=== PATIENT | female | born 1995 | race Two or more races ===

== ENCOUNTER 2022-08-10 11:52 | Outpatient (CLI) | payer MEDICAID, SELFPAY ==
--- NOTE | 2022-08-10 12:15 | CRLHL7_ITS ---
For Patients: As a result of the Cures Act, medical imaging exams and procedure reports are released immediately into your electronic medical record. You may view this report before your referring provider. If you have questions, please contact your health care provider. INDICATION: Dating and viability COMPARISON: none TECHNIQUE: Real time allen scale imaging of the fetus was performed. FINDINGS: Sonographic imaging demonstrates a single living intrauterine gestation. Fetus demonstrates a regular cardiac rate of 157 beats per minute. Fetus has a variable position. The placenta lies anterior. Circumvallate placenta noted inferiorly. Amniotic fluid volume appears subjectively normal. The composite ultrasound gestational age is calculated at 15 weeks 0 days with an estimated sonographic due date of 02/01/2023. The estimated weight is 111 grams which lies at the 89th %. The following biometric measurements were obtained: Biparietal diameter: 2.9 cm/15 weeks 2 days 89th% Head circumference: 10.8 cm/15 weeks 1 day 84th% Abdominal circumference: 8.9 cm/15 weeks 1 day 86th% Femur length: 1.6 cm/14 weeks 5 days 70th% The HC/AC ratio measures: 1.22 range (1.05-1.39) IMPRESSION: Single living intrauterine with sonographic gestational age of 15 weeks 0 days and sonographic due date of 02/01/2023. Anterior placenta with circumvallate morphology inferiorly. Too early for anatomic survey. Dictated by Laz Tom MD @ 08/10/2022 1:00:29 PM (Electronically Signed)
== END 2022-08-10 11:53 | disposition home or self-care (01) ==
LOC: US 11:56
PROVIDERS: Visit Provider Physician Assistant
DX: Z34.92 Encounter for supervision of normal pregnancy, unspecified, second trimester (principal); Z3A.15 15 weeks gestation of pregnancy
CPT/HCPCS: 76801; 76815

== ENCOUNTER 2022-08-10 13:19 | Outpatient (CLI) | payer MEDICAID, SELFPAY ==
[2022-08-10 19:41] LABS: Albumin* 4.1 g/dL (3.3-5.0)
[2022-08-10 19:44] LABS: Alkaline Phosphatase* 49 U/L (40-150); Aspartate Amino Transferase* 22 U/L (12-35); Bilirubin Direct* 0.2 mg/dL (0.0-0.5); Bilirubin Total* 0.4 mg/dL (0.1-1.5); Total Protein* 7.4 g/dL (6.0-8.3)
[2022-08-10 19:45] LABS: Alanine Aminotransferase* 13 U/L (4-35)
[2022-08-10 20:18] LABS: Hepatitis B Surface Antigen* Negative (Negative)
[2022-08-10 20:29] LABS: HIV 1/2/P24 Combo Screen* Negative (Negative)
[2022-08-10 20:35] LABS: Hepatitis C Virus Antibody* Negative (Negative)
[2022-08-10 21:33] LABS: Chlamydia DNA Amplified* NOT DETECTED (No Detected); GC DNA Amplified* NOT DETECTED (No Detected)
[2022-08-13 02:09] LABS: Rapid Plasma Reagin (RPR) Non Reactive (Non Reactive)
[2022-08-13 05:33] LABS: Rubella Antibody IgG 37.6 IU/mL
== END 2022-08-10 13:20 | disposition home or self-care (01) ==
PROVIDERS: Visit Provider Physician Assistant
DX: Z34.92 Encounter for supervision of normal pregnancy, unspecified, second trimester (principal); N89.8 Other specified noninflammatory disorders of vagina; R10.11 Right upper quadrant pain; Z3A.14 14 weeks gestation of pregnancy
CPT/HCPCS: 80076; 86592; 86703; 86762; 86787; 86803; 86850; 86900; 86901; 87086; 87186; 87340; 87491; 87591

== ENCOUNTER 2022-09-07 14:57 | Outpatient (CLI) | payer MEDICAID, SELFPAY ==
--- NOTE | 2022-09-07 15:00 | CRLHL7_ITS ---
For Patients: As a result of the Century Cures Act, medical imaging exams and procedure reports are released immediately into your electronic medical record. You may view this report before your referring provider. If you have questions, please contact your health care provider. INDICATION: Evaluate anatomy. COMPARISON: 08.10.22 TECHNIQUE: Real time allen scale imaging of the fetus was performed as well as color Doppler analysis of the umbilical vessels. FINDINGS: Sonographic imaging demonstrates a single living intrauterine gestation. Fetus demonstrates a regular cardiac rate of 163 beats per minute. Fetus has a transverse position, head maternal right. The placenta lies anterior/posterior and the posterior edge of the placenta lies 3 millimeters from the internal os with transvaginal imaging. Amniotic fluid volume appears normal. Single deepest vertical pocket: 5.4 cm. The cervix is closed and measures 5.9 cm in length. The composite ultrasound gestational age is calculated at 19 weeks 0 days with an estimated sonographic due date of 02/01/2023. The estimated weight is 253 grams which lies at the 29th %. The following biometric measurements were obtained: Biparietal diameter: 4.2 cm/18 weeks 5 days 35th% Head circumference: 15.7 cm/18 weeks 4 days 24th% Abdominal circumference: 13.7 cm/19 weeks 1 day 51st% Femur length: 2.7 cm/18 weeks 2 days 18th% The HC/AC ratio measures: 1.15 range (1.09-1.26) On anatomic survey, there is a normal appearance of the cerebral ventricles, cavum septi pellucidi, cisterna magna and cerebellum. The nose and lips appear normal. Incomplete visualization of the profile due to position. The cervical, thoracic and lumbar spine are well visualized and appear normal. Echogenic focus within the left ventricle. The left and right ventricular outflow tracts appear normal. The diaphragm and stomach appear normal. The kidneys and bladder also appear normal. There is a normal three-vessel cord and cord insertion site. The four extremities appear normal. IMPRESSION: Concordance of clinical and sonographic dating. Estimated weight 29th percentile. Abdominal circumference 51st percentile. Left ventricular echogenic focus measuring 1.4 millimeters. A level 2 ultrasound is recommended. Incomplete visualization of the profile due to position. The placenta appears to wrap around the anterior and posterior aspects. Circumvallate placenta is not as well appreciated when compared to the prior study. Nevertheless, there is low-lying placenta with the posterior aspect of the placenta extending to within 3 millimeters of the internal cervical os with transvaginal imaging. Dictated by Laz Tom MD @ 09/08/2022 12:37:50 PM (Electronically Signed)
== END 2022-09-07 14:58 | disposition home or self-care (01) ==
LOC: US 14:58
PROVIDERS: Visit Provider Physician Assistant
DX: Z34.92 Encounter for supervision of normal pregnancy, unspecified, second trimester (principal); Z3A.18 18 weeks gestation of pregnancy
CPT/HCPCS: 76805; 76817; 84443; 87086; 87186

== ENCOUNTER 2022-09-07 16:30 | Outpatient (CLI) | payer MEDICAID, SELFPAY | END 2022-09-07 16:31 | disposition home or self-care (01) | PROVIDERS: Visit Provider Physician Assistant | DX: O23.42 Unspecified infection of urinary tract in pregnancy, second trimester (principal); Z3A.19 19 weeks gestation of pregnancy | CPT/HCPCS: 84443; 87086; 87186 ==

== ENCOUNTER 2022-10-15 13:20 | Outpatient (CLI) | payer BC, SELFPAY | END 2022-10-15 13:21 | disposition home or self-care (01) | LOC: NFLDREF 10-17 05:39 | PROVIDERS: PCP Physician Assistant; Visit Provider Physician Assistant | DX: O23.42 Unspecified infection of urinary tract in pregnancy, second trimester (principal); O26.899 Other specified pregnancy related conditions, unspecified trimester; M54.50 Low back pain, unspecified; Z3A.19 19 weeks gestation of pregnancy | CPT/HCPCS: 87086 ==

== ENCOUNTER 2022-11-11 08:00 | Outpatient (RCR) | payer BC, SELFPAY ==
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
== END 2023-01-18 08:23 | disposition home or self-care (01) ==
PROVIDERS: PCP Physician Assistant; Visit Provider Physician Assistant
DX: O26.899 Other specified pregnancy related conditions, unspecified trimester (principal); M54.50 Low back pain, unspecified; R26.9 Unspecified abnormalities of gait and mobility; R53.1 Weakness; Z51.89 Encounter for other specified aftercare
CPT/HCPCS: 97110; 97140; 97161

== ENCOUNTER 2023-01-13 10:30 | Outpatient (CLI) | payer BC, SELFPAY | END 2023-01-13 10:31 | disposition home or self-care (01) | LOC: NFLDREF 01-14 15:39 | PROVIDERS: PCP Physician Assistant; Referring Provider Physician Assistant; Visit Provider Obstetrics & Gynecology | DX: Z34.83 Encounter for supervision of other normal pregnancy, third trimester (principal); Z36.85 Encounter for antenatal screening for Streptococcus B; Z3A.37 37 weeks gestation of pregnancy | CPT/HCPCS: 87081; 87653 ==

== ENCOUNTER 2023-01-16 21:18 | Inpatient (IN) | payer BC, SELFPAY ==
[2023-01-16] VITALS (10 sets, daily range): BP systolic 108–130; BP diastolic 59–78; PULSE 96–117; RESP 18; TEMP 36.8; BMI 24.5
[2023-01-16] MEDS: LACTATED RINGERS 1000 ML 1,000 ML 125 ML IV (21:34)
[2023-01-16] MEDS: AMPICILLIN 2 GM in 0.9 % SODIUM CHLORIDE Mini-bag 100 ML IVPB (21:35)
[2023-01-16] MEDS: OXYTOCIN 30 unit/500 ML in NS 30 UNIT/500 ML BAG 300 UNIT IVPB (22:51)
[2023-01-16] MEDS: LIDOCAINE 1 % PF 30 ML INJECTION (22:54)
[2023-01-16] MEDS: ACETAMINOPHEN 500 MG TABLET 1000 MG PO (23:31)
[2023-01-17] VITALS (8 sets, daily range): BP systolic 97–132; BP diastolic 64–79; PULSE 74–102; RESP 16–18; TEMP 36.6–36.9; O2SAT 97–99
[2023-01-17] MEDS: IBUPROFEN 600 MG TABLET PO ×2 (00:27→12:37)
--- NOTE | 2023-01-17 00:44 | W.PM.OBVAGDE ---
OB Procedure Vag Delivery Mother Details Mother Details: The patient is a 27 year-old, 3, Para 2, admitted on 01/16/23 at 37 6/7 weeks gestation in active labor. Cervix 7-8 cm dilated at the time of admission. GBS positive, one dose of antibiotics administered prior to delivery, 4-hour window not obtained. : 3 Para: 2 Weeks Gestation: 37.6 Admission Date: 01/16/23 Additional Details Amniotic Membrane Status: intact Amniotic Membrane Rupture Date: 01/16/23 Amniotic Membrane Rupture Time: 22:27 Amniotic Membrane Fluid Description: Clear Analgesia/Anesthesia Type: None Waterbirth: No Pitcoin: No Intrapartal Events: None Delivery augmentation: rupture of membranes Labor Onset: 20:00 Complete: 22:42 Pushin:42 Heart: heart tones during second stage were category 2. Delivery Details Delivery Date: 01/16/23 Delivery Time: 22:43 Route of delivery: Gender: Female Viability: Alive; Heart Rate Present Position at Delivery: OA Delivery Details: Delivered over intact perineum via spontaneous vaginal delivery. was placed on maternal abdomen.? Cord was clamped and cut after a 30-60 second delay. Nose and mouth were bulb suctioned.? weight 3390 g. 1 Minute Interval Total Score: 6 5 Minute Interval Total Score: 8 Additional Details Shoulder Dystocia: No Placenta Delivery Time: 22:48 Placental Delivery Description: Spontaneous Delivery repair: Chromic Procedure Done: Global Blood Loss: 625 Laceration: Perineal - 2nd Degree (left) Blood Loss Measurement Type: QBL Bakri Used: No Sponge/Need Count Correct: Yes Cord Vessel Description: 3 Vessels, Nuchal Cord (x1), Loose and Reduced Event Summary Status: Mother and infant were stable after delivery. required PPV for 1 minute, then CPAP for ~15 minutes. See Peds note. Disposition: floor
--- NOTE | 2023-01-17 00:54 | P.LDBA_ITS ---
Subjective History of Present Illness Narrative: Patient is being admitted to Labor and Delivery for active labor. She is a 27 year old at 37 6/7 weeks gestation. Her full history and physical was dictated by Dr. Sawyer on 01/13/23. Please see this for details. . Children: Onel Correa III. Baby: Girl! Cassie Father of Baby: Onel Madsen 1. Asthma * Mild intermittent, albuterol use approximately every 2 weeks 2. Right upper quadrant pain reported at 1st OB, present for 2 weeks. Intermittent. * LFTs: all normal * RUQ US: Patient had to reschedule. 09/07/22: Reported episodes of pain had decreased in frequency 3. UTI, E coli. Resistant to amoxicillin and Bactrim. Treated with macrobid * UC 09/07/22: e coli. Resistant to amoxillin and Bactrim. Treated with Keflex * UC next visit 10/15/22: <10,000 gram-positive marcia 4. Anterior placenta with circumvallate morphology inferiorly noted on viability ultrasound at 15 weeks 5. FAS US: Echogenic foci left ventricle, suboptimal views of profile. Placenta wrapped anterior to posterior. Post portion to internal os: 0.3cm. Ant portion to internal os: 2.5.cm = Low-lying placenta. * Maternity T21: No increased risk for aneuploidy * Level 2 ultrasound: Echogenic foci noted, otherwise normal anatomy. In the setting of low risk cell free DNA, considered incidental finding. Low-lying placenta resolved 6. Syncopal episodes * EKG: sinus rhythm with sinus arrhythmia * TSH normal * Cardiology referral : appt. 10/15/22 (note not available yet, per patient concern for POTS) 7. LBP, PT referral 10/15/22 8. Desires Nexplanon placed in the hospital prior to discharge (agnieszka conroy does not want her on control, discussed IUD vs nexplanon, discussed bruising and ability to see and palpate kenya) 9. Reports Pap last (2021), records requested. Delivery note requested: As of 12/31/22 neither have been scanned * Pap w/ HPV at her 6 wk pp visit. Flu shot: Completed Covid: due for booster Tdap: 11/26/22 OB - Problem Based A/P Additional Plan (1) Spontaneous onset of labor: Status: Acute Plan GBS positive, begin antibiotic prophylaxis. 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
[2023-01-17 06:43] LABS: Hemoglobin* 10.3 gm/dL (12.0-16.0)
[2023-01-17] MEDS: DOCUSATE SODIUM 100 MG CAPSULE PO (08:09)
[2023-01-17] MEDS: ACETAMINOPHEN 500 MG TABLET 1000 MG PO ×2 (08:09→19:21)
--- NOTE | 2023-01-17 08:27 | PM.OBPNVD1 ---
OB - PN:Subj Subjective Date Seen: 01/17/23 Patient comments OB post-: no complaints, pain well controlled, tolerating diet and flatus present Garfield status: and doing well Garfield feeding status: exclusively Narrative: The patient feels well.? The pain is well controlled with current medications.? She has no new complaints.? Urinary output is adequate and she is voiding without difficulty.? Has a good appetite, is tolerating a general diet, is passing flatus, and has not had a bowel movement.? Has small amount of rubra lochia.? She is ambulating well. She wanted to discharge today but we discussed that baby was not fully treated for GBS so the recommendation is for baby to stay for 36-48 hours. Did let her know that she could discharge but baby would have to stay and she declined. She is worried about her other children but stated that they are with her partner. asked if she was comfortable with this and she said that she is. She would like a Nexplanon inserted before discharge. Discussed other options including the depo shot and IUD. She states that he wants more kids so will not bring her for an appointment for control but that if it is already there he won't say anything. Discussed that it can be inserted today sometime or tomorrow morning. She doesn't want to do it if he is here so she will inform the nurses if there is a period of time when she knows he will not be here. OB - PN: Obj Exam Physical Exam: Vital signs: Temp Pulse Resp BP O2 Del Method 98.0 F 90 18 109/66 Room Air 01/17/23 04:25 01/17/23 04:25 01/17/23 04:25 01/17/23 04:25 01/17/23 04:25 Narrative: GENERAL APPEARANCE:? normal affect, alert, no distress, slight flat affect MOOD:? appropriate? CHEST:? clear to auscultation and percussion? HEART:? regular rate and rhythm? ABDOMEN:? soft, non-tender the uterine fundus is U/2 and is appropriate for the stage of recovery.? PERINEUM:? mild edema of the perineum, there is a 2nd degreee that is healing well.? EXTREMITIES:? normal and no edema? OB - PN: Obj Data Labs Labs: Laboratory Results - last 24 hr 01/17/23 06:29 Hgb 10.3 L OB - PN: A/P Delivery Assessment and Plan (1) care following vaginal delivery: Status: Acute (2) Lactating mother: Status: Acute Plan day: 1 Plan: routine care Comments: Anticipate discharge tomorrow.?
[2023-01-18 00:15] VITALS: BP 105/64; PULSE 100; RESP 16; TEMP 37.1; O2SAT 99
[2023-01-18] MEDS: IBUPROFEN 600 MG TABLET PO (05:12)
--- NOTE | 2023-01-18 07:24 | P.DS_ITS ---
DS: Providers Provider Time Seen by Provider: : Date Seen: 01/18/23 Date of admission: 01/16/23 21:18 Primary care physician: Tierra Lou PA-C Admitting Clinician: Emperatriz Campo MD Attending Physician on discharge: Emperatriz Campo MD Date of Discharge: 01/18/23 DS: Diagnosis Discharge Diagnosis (1) care following vaginal delivery: Status: Acute (2) Lactating mother: Status: Acute (3) Second degree laceration of perineum, delivered, current hospitalization: Status: Acute Exam Narrative: Exam Narrative: VSS, afebrile GENERAL APPEARANCE: ?normal affect, alert, no distress MOOD: ?appropriate HEENT: normocephalic, neck supple, full ROM CHEST: ?Symmetrical chest wall movement. ?Normal respiratory effort. ?Clear to auscultation HEART: ?regular rate and rhythm ABDOMEN: ?soft, non-tender. Uterine fundus is firm, 3 below Umbilicus, Midline and is appropriate for the stage of recovery. ?Bowel sounds present. PERINEUM: ?moderate edema of the perineum, there is a 2nd degree laceration that is healing well. EXTREMITIES: ?normal and no edema Const: Vital Signs, click to edit/add: Vital Signs - 24 hr 01/17/23 07:50 01/17/23 12:41 01/17/23 17:00 Temperature 98.0 F 97.9 F Pulse Rate [Blood Pressure Cuff] 101 H 90 101 H Respiratory Rate 16 16 16 Blood Pressure [Ri ght Arm] 102/77 102/67 100/66 Pulse Oximetry 98 97 97 Oxygen Delivery Me thod Room Air Room Air Room Air 01/17/23 20:02 01/18/23 00:15 Temperature 98.4 F 98.7 F Pulse Rate [Blood Pressure Cuff] 102 H 100 Respiratory Rate 16 16 Blood Pressure [Ri ght Arm] 97/64 105/64 Pulse Oximetry 99 99 Oxygen Delivery Me thod Room Air Room Air Documenting provider has reviewed patient's vital signs: yes OB - DS: Summary Hospital Course Hospital Course: Fitz is a 27 y.o. G 3 P 3 who was admitted to [facility] for labor. ?She had an uncomplicated NVD The patient feels well. ?The pain is well controlled with current medications. ?She has no new complaints. ?She is breast feeding and reports things are overall going well, though does have some nipple soreness.? the patient has done well.? Vitals have been stable.? She has remained afebrile.? Has a good appetite, is tolerating a general diet. ?She is voiding without difficulty.? She is passing gas and has not had a bowel movement.? She is ambulating and denies any dizziness.? Has Small amount of rubra lochia. She requested a nexplanon be placed prior to discharge for prevention. Problems: none plan: Discharge home with baby. Follow up in 2 weeks and 6 weeks. , may follow up with if needed Nexplanon placed Peripartum Data delivery method: Vaginal Laceration description: Perineal - 2nd Degree Procedures: Nexplanon placement complications: none [place] Gender: Female Discharge Plan: Home Status at Discharge Functional status at discharge: independent ambulation Overall status at discharge: patient is progressing back to baseline Time Spent with Patient Time attestation: Total time spent providing and/or coordinating discharge services: Time spent: Less than 30 minutes Discharge Plan Discharge Disposition: Home, Self-Care Date of Admission: 01/16/23 21:18 Attending Provider on Discharge: Bri Bar Primary Care Provider: Tierra Lou Condition: Stable Anticipated Discharge Date/Time: 01/18/23 10:00 Discharge Medications: New docusate sodium 100 mg Capsule 100 mg PO BID PRNQty: 100 0RF Rx Instructions: Take 1 cap 1-2 times a day as needed for constipation ibuprofen 600 mg Tablet 600 mg PO Q6H PRNQty: 60 0RF Continued albuterol sulfate 90 mcg/actuation HFA aerosol inhaler 2 puff inhalation Q6H PRN (Reason: shortness of breath or wheezing) Qty: 6.7 2RF prenat.vits,lacy,[id number]-vvox-[id number] Tablet 1 tab PO QDAY Discharge Orders: Discharge Order (Routine); Ordered 01/18/23 Ordered By: Bri Bar Patient Education: OB Over the Counter Medication Information, OB Vaginal/Breast Feeding Additional Instructions: Follow up in 2 weeks and 6 weeks. Activity Level: Activity as Tolerated Discharge Diet: Regular Follow Up Appointments: Tierra Lou PA-C [Primary Care Provider] - [facility] Instructions
[2023-01-18 08:39] VITALS: BP 106/71; PULSE 102; RESP 16; TEMP 36.7; O2SAT 99
== END 2023-01-18 13:16 | disposition home or self-care (01) | DRG 560 ==
LOC: OB OUT 21:18 → OB 21:18
PROVIDERS: Admitting Provider Obstetrics & Gynecology; PCP Physician Assistant; Visit Provider Obstetrics & Gynecology
DX: O99.824 Streptococcus B carrier state complicating childbirth (principal); Z3A.37 37 weeks gestation of pregnancy; J45.20 Mild intermittent asthma, uncomplicated; O70.1 Second degree perineal laceration during delivery; Z37.0 Single live birth
CPT/HCPCS: 36415; 85018; A9270; J0290; J2001; J7120